=== PATIENT | male | born 1980 | race African-American/Black ===

== ENCOUNTER 2017-06-20 12:35 | Emergency (ER) | payer SELFPAY ==
[~2017-06-20] VITALS: Ht 182.9 cm; Wt 93.0 kg
[~2017-06-20 12:35] MED LIST: ALBUTEROL INHALER
[2017-06-20] MEDS ORDERED: HYDROCODONE/APAP 7.5/325MG 1 TAB TABLET PO ONE (16:15)
[2017-06-20] MEDS ORDERED: KETOROLAC 60MG/2ML VIAL IM ONE (16:15)
[2017-06-20 17:40] VITALS: BP 125/63
== END 2017-06-20 17:57 | disposition home or self-care (01) ==
LOC: ER 14:08
DX: S20.319A Abrasion of unspecified front wall of thorax, initial encounter (principal); S40.812A Abrasion of left upper arm, initial encounter; S60.512A Abrasion of left hand, initial encounter; S60.511A Abrasion of right hand, initial encounter; S40.811A Abrasion of right upper arm, initial encounter; S70.01XA Contusion of right hip, initial encounter; S70.11XA Contusion of right thigh, initial encounter; R03.0 Elevated blood-pressure reading, without diagnosis of hypertension; V29.9XXA Motorcycle rider (driver) (passenger) injured in unspecified traffic accident, initial encounter; Y93.89 Activity, other specified; Y92.410 Unspecified street and highway as the place of occurrence of the external cause
CPT/HCPCS: 71101; 72170; 96372; 99284; J1885; Z7610